=== PATIENT | male | born 1955 | race Caucasian/White ===

== ENCOUNTER 2022-04-03 10:03 | Outpatient (CLI) | payer BC ==
[~2022-04-03 10:03] MED LIST: Magnevist 469MG/ML 20 ML VIAL ONE
== END 2022-04-03 10:04 | disposition home or self-care (01) ==
LOC: CSHSPEC 10:03
PROVIDERS: ATTEND Urology
DX: R97.20 Elevated prostate specific antigen [PSA] (principal); Z98.890 Other specified postprocedural states; Z95.0 Presence of cardiac pacemaker
CPT/HCPCS: 71045; 72197

== ENCOUNTER 2024-09-22 12:16 | Outpatient (CLI) | payer BC | END 2024-09-22 12:17 | disposition home or self-care (01) | LOC: CSHULT 12:16 | PROVIDERS: ATTEND Internal Medicine | DX: R11.0 Nausea (principal); R10.10 Upper abdominal pain, unspecified | CPT/HCPCS: 76700 ==